=== PATIENT | female | born 1990 | race Caucasian/White ===

== ENCOUNTER → 2022-06-19 11:48 | Outpatient (BNVA) | payer SELFPAY | DX: Z02.83 Encounter for blood-alcohol and blood-drug test (principal) ==

== ENCOUNTER → 2023-06-10 10:10 | Outpatient (BNVA) | payer SELFPAY | DX: Z02.83 Encounter for blood-alcohol and blood-drug test (principal) ==

== ENCOUNTER → 2023-06-25 11:48 | Outpatient (BNVA) | payer SELFPAY | DX: Z02.0 Encounter for examination for admission to educational institution (principal) ==